=== PATIENT | female | born 1955 | race Caucasian/White ===

== ENCOUNTER 2020-10-21 19:55 | Inpatient (IN) ==
[2020-10-21] MEDS ORDERED: Naloxone 0.4 MG/ML INJ IVP PRN (23:32)
[2020-10-21] MEDS ORDERED: Melatonin 3 MG TABLET PO PRN (23:32)
[2020-10-21] MEDS ORDERED: Acetaminophen 325 MG TABLET PO PRN (23:32)
[2020-10-21] MEDS: Heparin 25,000UNIT/250ML 1/2NS 25,000 UNIT/250 ML IV.SOLN IVC SCH (23:45)
[2020-10-21] MEDS ORDERED: *HR* Heparin 5,000 UNIT/ML VIAL IVP PRN ×2 (23:49)
[2020-10-22] MEDS: Ringers Solution, Lactated 1,000 ML IVC SCH ×2 (00:06→06:06)
[2020-10-22 00:41] LABS: Basophils % 0.2 %; Hematocrit 36.9 % (35.3-44.9); Hemoglobin 11.3 g/dL (11.5-15.4); Lymphocytes # 1.7 K/mcL (0.6-4.6); Lymphocytes % 11.9 %; Mean Corpuscular HGB Conc 30.6 g/dL (31.6-35.5); Mean Corpuscular Hemoglobin 25.3 pg (28.0-33.3); Mean Corpuscular Volume 82.6 fL (83.0-100.0); Mean Platelet Volume 10.7 fL (9.4-12.4); Monocytes # 1.5 K/mcL (0.0-1.3); Monocytes % 10.2 %; Neutrophils # 11.1 K/mcL (1.6-8.9); Platelet Count 260 K/mcL (140-400); Red Blood Count 4.47 M/mcL (3.82-4.97); Red Cell Distribution Width 16.3 % (11.5-14.5); Segmented Neutrophils % 76.7 %; White Blood Count 14.5 K/mcL (4.3-11.1)
[2020-10-22 00:53] LABS: Heparin anti-factor XA UFH 0.8 IU/mL (0.30-0.70); INR 1.9; Prothrombin Time 21.6 Seconds (9.4-12.1)
[2020-10-22 01:03] LABS: Albumin 3.7 g/dL (3.5-5.7); Albumin/Globulin Ratio 1.3 (1.1-2.2); Bilirubin,Total 1.1 mg/dL (0.3-1.0); Calcium 8.6 mg/dL (8.6-10.3); Chol/HDL Ratio 5.3 (0-4.9); Globulin 2.8 g/dL (2.4-3.5); Phosphorous 5.3 mg/dL (2.7-4.5); Potassium 3.9 mEq/L (3.5-5.1); Total Protein 6.5 g/dL (6.4-8.9); Troponin I 0.82 ng/mL (< 0.04)
[2020-10-22] MEDS ORDERED: Doxycycline 100 MG in 0.9 % Sodium Chloride Mini Bag 100 ML IVPB ONE (01:19)
[2020-10-22] MEDS: Cefepime HCl 2,000 MG in Water for inj. (sterile) 20 ML IVP SCH ×2 (01:55→07:39)
[2020-10-22] MEDS ORDERED: Isovue-370 500 ML BOTTLE IVP ONE (02:12)
[2020-10-22] MEDS ORDERED: Perflutren Lipid Microsphere 1.3 ML in 0.9 % Sodium Chloride 8.7 ML IVP PRN ×2 (02:15→08:46)
[2020-10-22] MEDS: Budesonide/Formoterol 80/4.5 1 PUFF INH IH SCH ×2 (07:30→19:57)
[2020-10-22] MEDS: Nicotine 21 MG PATCH.TD24 TD SCH (07:40)
[2020-10-22] MEDS: Heparin 25,000UNIT/250ML 1/2NS 25,000 UNIT/250 ML IV.SOLN IVC SCH (08:14)
[2020-10-22] MEDS ORDERED: Ringers Solution, Lactated 1,000 ML IVC ONE ×4 (09:00→17:04)
[2020-10-22] MEDS ORDERED: Piperacillin/Tazobactam 3.375 GM in 0.9 % Sodium Chloride Mini Bag 100 ML IVPB SCH (10:00)
[2020-10-22] MEDS ORDERED: Vancomycin 500 MG in 0.9 % Sodium Chloride Mini Bag 100 ML IVPB SCH (10:00)
[2020-10-22] MEDS ORDERED: Furosemide 20 MG/2 ML VIAL IVP ONE (10:55)
[2020-10-22 12:00] LABS: Bilirubin,Urine Negative (Negative); Blood,Urine Moderate (Negative); Clarity,Urine Clear (Clear); Color,Urine Light-Yellow (Yellow); Glucose,Urine (UA) Normal (Normal); Ketones,Urine Negative (Negative); Leukocyte Esterase,Urine Negative (Negative); Nitrite,Urine Negative (Negative); Protein,Urine 70 mg/dL (Neg-Trace); Specific Gravity,Urine > 1.030 (1.010-1.025); Squamous Epithelial Cell,Urine Few per hpf (None-Few); Urobilinogen,Urine Normal (Normal)
[2020-10-22] MEDS ORDERED: Doxycycline 100 MG in 0.9 % Sodium Chloride Mini Bag 100 ML IVPB SCH (12:00)
[2020-10-22] MEDS: Acyclovir 400 MG in D5% in Water 100 ML IVPB SCH (15:40)
[2020-10-22] MEDS ORDERED: Clindamycin 600 MG/50 ML 600 MG/50 ML IV.SOLN IVPB SCH (16:00)
[2020-10-22] MEDS ORDERED: Cefepime HCl 2,000 MG in 0.9 % Sodium Chloride Mini Bag 100 ML IVPB SCH (18:00)
[2020-10-22] MEDS: 0.9 % Sodium Chloride 1,000 ML IVC SCH (22:36)
[2020-10-23] MEDS ORDERED: Dexmedetomidine HCl 400 MCG/100 ML MLS IVC SCH ×2 (01:00)
[2020-10-23] MEDS: Acyclovir 400 MG in D5% in Water 100 ML IVPB SCH ×2 (03:16→15:41)
[2020-10-23 03:58] LABS: Basophils % 0.2 %; Hemoglobin 10.9 g/dL (11.5-15.4); Immature Granulocytes % 0.8 % (0-4); Lymphocytes # 1.1 K/mcL (0.6-4.6); Lymphocytes % 5.8 %; Mean Corpuscular HGB Conc 31.1 g/dL (31.6-35.5); Mean Corpuscular Hemoglobin 25.9 pg (28.0-33.3); Mean Corpuscular Volume 83.1 fL (83.0-100.0); Mean Platelet Volume 10.7 fL (9.4-12.4); Monocytes # 1.1 K/mcL (0.0-1.3); Monocytes % 5.8 %; Neutrophils # 15.9 K/mcL (1.6-8.9); Nucleated Red Blood Cells 0.1 /100 WBC (0); Platelet Count 257 K/mcL (140-400); Red Blood Count 4.21 M/mcL (3.82-4.97); Red Cell Distribution Width 16.4 % (11.5-14.5); Segmented Neutrophils % 87.4 %; White Blood Count 18.1 K/mcL (4.3-11.1)
[2020-10-23 04:13] LABS: Albumin 3.5 g/dL (3.5-5.7); Albumin/Globulin Ratio 1.3 (1.1-2.2); Bilirubin,Total 1.3 mg/dL (0.3-1.0); Calcium 8.3 mg/dL (8.6-10.3); Globulin 2.6 g/dL (2.4-3.5); Potassium 3.8 mEq/L (3.5-5.1); Total Protein 6.1 g/dL (6.4-8.9)
[2020-10-23] MEDS ORDERED: Morphine Sulfate 2 MG/ML SYRINGE IVP ONE (06:14)
[2020-10-23] MEDS: 0.9 % Sodium Chloride 1,000 ML IVC SCH (07:48)
[2020-10-23] MEDS: Nicotine 21 MG PATCH.TD24 TD SCH (07:49)
[2020-10-23] MEDS ORDERED: Vancomycin 500 MG in 0.9 % Sodium Chloride Mini Bag 100 ML IVPB SCH (10:00)
[2020-10-23] MEDS: Budesonide/Formoterol 80/4.5 1 PUFF INH IH SCH (10:23)
[2020-10-23] MEDS ORDERED: Furosemide 40 MG/4 ML VIAL IVP ONE (11:53)
[2020-10-23 12:56] LABS: Adenovirus Not Detected (Not Detect); Bordetella Pertussis Not Detected (Not Detect); Chlamydophila pneumoniae Not Detected (Not Detect); Coronavirus 229E Not Detected (Not Detect); Coronavirus HKU1 Not Detected (Not Detect); Coronavirus NL63 Not Detected (Not Detect); Coronavirus OC43 Not Detected (Not Detect); Human Metapneumovirus Not Detected (Not Detect); Human Rhinovirus/Enterovirus Not Detected (Not Detect); Influenza A Subtype 2009 H1 Not Detected (Not Detect); Influenza B Not Detected (Not Detect); Mycoplasma pneumoniae Not Detected (Not Detect); Parainfluenza Virus 1 Not Detected (Not Detect); Parainfluenza Virus 2 Not Detected (Not Detect); Parainfluenza Virus 3 Not Detected (Not Detect); Parainfluenza Virus 4 Not Detected (Not Detect); Respiratory Syncytial Virus Not Detected (Not Detect); SARS-CoV-2 Not Detected (Not Detect)
[2020-10-23 14:36] LABS: Thyroid Stimulating Hormone 1.573 mcIU/mL (0.340-5.600)
[2020-10-23] MEDS ORDERED: *HR* Heparin 5,000 UNIT/ML VIAL SQ SCH (14:45)
[2020-10-23 16:31] VITALS: BP 141/49
== END 2020-10-23 17:25 | disposition short-term general hospital (02) | DRG 871 ==
LOC: 2NNU → SUATTDRO 10-22 16:15
PROVIDERS: ADMIT Internal Medicine; ATTEND Internal Medicine